=== PATIENT | female | born 1980 | race Caucasian/White ===

== ENCOUNTER 2020-12-04 10:19 | Emergency (ER) | payer SELFPAY ==
[2020-12-04] MEDS ORDERED: Acetaminophen 500 MG Tab PO ONE (10:28)
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
[2020-12-04 12:07] LABS: BLOOD UREA NITROGEN,BUN 14 mg/dL (7.0-18.0); CARBON DIOXIDE,CO2 28.5 mmol/L (21.0-32.0); CHLORIDE,CL 105 mmol/L (98-107); GLUCOSE RANDOM 100 mg/dL (74-106); SODIUM,NA 142 mmol/L (136-145)
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
== END 2020-12-04 13:27 | disposition home or self-care (01) ==
LOC: MW.ED 10:19
DX: S06.9X9A Unspecified intracranial injury with loss of consciousness of unspecified duration, initial encounter (principal); Y04.2XXA Assault by strike against or bumped into by another person, initial encounter
CPT/HCPCS: 36415; 70450; 71101; 72125; 73030; 73502; 80053; 85025; 99284; A9270